=== PATIENT | male | born 1960 | race Caucasian/White ===

== ENCOUNTER 2017-12-24 21:47 | Emergency (ER) | payer MEDICAID ==
[~2017-12-24] VITALS: Ht 172.7 cm; Wt 82.7 kg
[2017-12-25] MEDS ORDERED: HYDROcodone/acetaminophen 10/325mg tab PO ONE (01:05)
[2017-12-25 01:12] LABS: BASOPHILS # (AUTO) 0.1 X10'3 (0-0.2); EOSINOPHILS # (AUTO) 0.1 X10'3 (0-0.9); EOSINOPHILS % (AUTO) 1.8 % (0-6); HEMATOCRIT 40.5 % (42.0-52.0); HEMOGLOBIN 13.9 g/dl (14.0-17.9); LYMPHOCYTES # (AUTO) 2.4 X10'3 (1.1-4.8); LYMPHOCYTES % (AUTO) 29.6 % (21-51); MEAN CORPUSCULAR HGB CONC 34.4 % (33.0-36.5); MEAN CORPUSCULAR VOLUME 92.9 FL (78-98); MEAN PLATELET VOLUME 8.2 FL (7.4-10.4); MONOCYTES # (AUTO) 1.1 X10'3 (0-0.9); MONOCYTES % (AUTO) 13.1 % (2-12); NEUTROPHILS # (AUTO) 4.4 X10'3 (1.8-7.7); NEUTROPHILS % (AUTO) 54.5 % (42-75); PLATELET COUNT 193 X10'3 (140-440); RED BLOOD COUNT 4.36 X10'6 (4.70-6.10); WHITE BLOOD COUNT 8.1 X10'3 (4.5-11.0)
[2017-12-25] MEDS ORDERED: clindamycin-Cleocin 900mg/D5W 50 ML IV ONE (01:15)
[2017-12-25 01:20] LABS: ALANINE AMINOTRANSFERASE 82 U/L (12-78); ALBUMIN 3.2 G/DL (3.4-5.0); ALBUMIN/GLOBULIN RATIO 0.8 (1.1-1.5); ALKALINE PHOSPHATASE 106 IU/L (46-116); ANION GAP 7 (8-16); ASPARTATE AMINO TRANSFERASE 68 U/L (10-37); BILIRUBIN,TOTAL 0.4 MG/DL (0.1-1.0); BLOOD UREA NITROGEN 10 MG/DL (7-18); CALCIUM 8.1 MG/DL (8.5-10.1); CHLORIDE 103 MMOL/L (99-107); CREATININE 0.83 MG/DL (0.60-1.10); GLUCOSE 100 MG/DL (70-104); SODIUM 135 MMOL/L (135-145); TOTAL CARBON DIOXIDE 24.8 MMOL/L (24-32); TOTAL PROTEIN 7.1 G/DL (6.4-8.2); eGFR > 90 ML/MIN
[2017-12-25] MEDS ORDERED: SULF1TAB49 PO (02:01)
[2017-12-25] MEDS ORDERED: HYDR-569 PO (02:01)
[2017-12-25] MEDS ORDERED: CEPH500C5 PO (02:01)
[2017-12-25 02:19] VITALS: BP 111/70
== END 2017-12-25 02:22 | disposition home or self-care (01) ==
LOC: ER 21:48
DX: L03.116 Cellulitis of left lower limb (principal); I10 Essential (primary) hypertension; F17.200 Nicotine dependence, unspecified, uncomplicated; Z98.890 Other specified postprocedural states; Z88.5 Allergy status to narcotic agent; Z88.8 Allergy status to other drugs, medicaments and biological substances
CPT/HCPCS: 36415; 73630; 80053; 85025; 96365; 99285; J3490

== ENCOUNTER 2020-12-29 09:02 | Inpatient (IN) | payer MEDICAID ==
[~2020-12-29] VITALS: Ht 172.7 cm; Wt 85.2 kg
[~2020-12-29 09:02] MED LIST: HYDR-4383 PO
[2020-12-29 09:53] LABS: BASOPHILS % (AUTO) 0.3 % (0-1); EOSINOPHILS # (AUTO) 0.3 X10'3 (0-0.9); EOSINOPHILS % (AUTO) 3.6 % (0-6); HEMOGLOBIN 15.4 g/dl (14.0-17.9); LYMPHOCYTES # (AUTO) 2.6 X10'3 (1.1-4.8); LYMPHOCYTES % (AUTO) 30.2 % (21-51); MEAN CORPUSCULAR HGB CONC 33.4 g/dL (33.0-36.5); MEAN CORPUSCULAR VOLUME 89.6 FL (78-98); MEAN PLATELET VOLUME 6.7 FL (7.4-10.4); MONOCYTES # (AUTO) 0.8 X10'3 (0-0.9); MONOCYTES % (AUTO) 9.3 % (2-12); NEUTROPHILS # (AUTO) 4.9 X10'3 (1.8-7.7); NEUTROPHILS % (AUTO) 56.6 % (42-75); PLATELET COUNT 392 X10'3 (140-440); RED BLOOD COUNT 5.13 X10'6 (4.70-6.10); RED CELL DISTRIBUTION WIDTH 12.9 % (11.5-14.5); WHITE BLOOD COUNT 8.7 X10'3 (4.5-11.0)
[2020-12-29 10:08] LABS: ALANINE AMINOTRANSFERASE 21 U/L (12-78); ALBUMIN 3.8 G/DL (3.4-5.0); ALBUMIN/GLOBULIN RATIO 0.9 (1.1-1.5); ALKALINE PHOSPHATASE 103 IU/L (46-116); ANION GAP 9 (8-16); ASPARTATE AMINO TRANSFERASE 20 U/L (10-37); BILIRUBIN,TOTAL 0.2 MG/DL (0.1-1.0); BLOOD UREA NITROGEN 17 MG/DL (7-18); BUN/CREATININE RATIO 18.7 (5.4-32.0); CALCIUM 9.2 MG/DL (8.5-10.1); CHLORIDE 104 MMOL/L (99-107); CREATININE 0.91 MG/DL (0.60-1.10); GLUCOSE 107 MG/DL (70-104); POTASSIUM 4.7 MMOL/L (3.5-5.1); SODIUM 139 MMOL/L (135-145); TOTAL CARBON DIOXIDE 26.3 MMOL/L (24-32); TOTAL PROTEIN 7.9 G/DL (6.4-8.2); eGFR 85 ML/MIN
[2020-12-29] MEDS ORDERED: aspirin 81mg tab.chew PO ONE (10:15)
--- NOTE | 2020-12-29 10:15 | NUR ---
Patient actively vomiting, Dr Brandt aware.
[2020-12-29] MEDS ORDERED: nitroGLYCERIN 0.4mg/hour patch TD ONE (10:25)
[2020-12-29] MEDS ORDERED: amLODIPine 5mg tablet PO ONE (10:30)
[2020-12-29] MEDS ORDERED: chlordiazePOXIDE 25mg capsule PO ONE ×2 (10:30→13:20)
[2020-12-29] MEDS ORDERED: ondansetron 4mg rapidly disintigrating tab PO ONE (10:40)
[2020-12-29] MEDS ORDERED: hydrALAZINE 25 MG tablet PO SCH (12:05)
[2020-12-29] MEDS ORDERED: hydrALAZINE 25 MG tablet PO ONE (12:05)
[2020-12-29] MEDS ORDERED: carvedilol 6.25mg tablet PO SCH (12:05)
[2020-12-29] MEDS ORDERED: carvedilol 6.25mg tablet PO ONE (12:05)
[2020-12-29] MEDS ORDERED: AMLO10TA48 PO (12:08)
[2020-12-29] MEDS ORDERED: CARV-49 PO (12:08)
--- NOTE | 2020-12-29 13:06 | NUR ---
Dr Brandt aware patient BP 225/137.
[2020-12-29] MEDS ORDERED: nitroGLYCERIN-Tridil 50MG/D5W 250 ML IV PRN (13:20)
[2020-12-29 13:39] LABS: PARTIAL THROMBOPLASTIN TIME 28 SECONDS (22-32)
[2020-12-29] MEDS ORDERED: LURA40TA3 PO (13:43)
[2020-12-29] MEDS ORDERED: FLO0.4C PO (13:43)
[2020-12-29] MEDS ORDERED: BUPR-94 PO (13:43)
[2020-12-29] MEDS ORDERED: BENZ1TAB7 PO (13:43)
[2020-12-29] MEDS ORDERED: ATOM80CA PO (13:43)
[2020-12-29 13:53] LABS: ETHANOL < 0.010 GM/DL (0.0-0.010)
[2020-12-29] MEDS ORDERED: hydrALAZINE 20mg/ml inj. IV PRN (15:00)
[2020-12-29] MEDS ORDERED: dextrose 50%-water 50ml dispensing syringe IV PRN (15:20)
[2020-12-29] MEDS ORDERED: mag hydrox/Alum hydrox/simeth 30ml oral suspension PO PRN (15:20)
[2020-12-29] MEDS ORDERED: ondansetron/PF 4mg/2ml inj IV PRN (15:20)
[2020-12-29] MEDS ORDERED: thiamine 100mg/ml 2ml inj. IV ONE (15:20)
[2020-12-29] MEDS ORDERED: aminophylline 250mg/10ml inj. IV PRN (15:20)
[2020-12-29] MEDS ORDERED: magnesium 2GM in 50ml NS 50 ML IV PRN (15:20)
[2020-12-29] MEDS ORDERED: diphenhydrAMINE 25mg capsule PO PRN (15:20)
[2020-12-29] MEDS ORDERED: bisacodyl 10mg suppository rectal RC PRN (15:20)
[2020-12-29] MEDS ORDERED: magnesium Cl slow-release 64mg tablet PO PRN (15:20)
[2020-12-29] MEDS ORDERED: haloperidol lactate 5mg/ml inj IM PRN (15:20)
[2020-12-29] MEDS ORDERED: LORazepam 2 mg/ml vial IV PRN (15:20)
[2020-12-29] MEDS ORDERED: metoprolol tartrate 1mg/ml inj IV PRN (15:20)
[2020-12-29] MEDS ORDERED: magnesium hydroxide 30ml (MOM) UD suspension PO PRN (15:20)
[2020-12-29] MEDS ORDERED: haloperidol 5mg tablet PO PRN (15:20)
[2020-12-29] MEDS ORDERED: magnesium 4gm in 100ml NS 100 ML IV PRN (15:20)
[2020-12-29] MEDS ORDERED: potassium Cl 20 mEq SR tablet PO PRN ×2 (15:20)
[2020-12-29] MEDS ORDERED: nitroGLYCERIN 0.4mg SUBLingual tab SL PRN (15:20)
[2020-12-29] MEDS ORDERED: regadenoson 0.4mg/5ml syringe IV ONE (15:20)
[2020-12-29] MEDS ORDERED: potassium Cl 40MEQ/1/2NS 520ml 520 ML IV PRN ×2 (15:20)
[2020-12-29] MEDS ORDERED: acetaminophen 650mg rectal suppository RC PRN (15:20)
[2020-12-29] MEDS ORDERED: acetaminophen 325mg tablet PO PRN ×2 (15:20)
[2020-12-29] MEDS: lisinopril 20mg tablet PO SCH (15:28)
[2020-12-29] MEDS ORDERED: HYDROcodone/acetaminophen 10/325mg tab PO PRN (15:30)
[2020-12-29] MEDS ORDERED: HYDROcodone/acetaminophen 5mg/325mg tablet PO PRN (15:30)
[2020-12-29 15:53] LABS: HEMOGLOBIN A1C 5.5 % (4.5-6.2)
[2020-12-29] MEDS: dextrose 5%-normal saline 1,000 ML IV SCH (15:54)
[2020-12-29 18:32] LABS: URINE AMPHETAMINE SCREEN POSITIVE (Neg); URINE BARBITUATE SCREEN NEGATIVE (Neg); URINE BENZODIAZEPINES SCREEN NEGATIVE (Neg); URINE CANNABINOID SCREEN POSITIVE (Neg); URINE COCAINE SCREEN NEGATIVE (Neg); URINE METHADONE SCREEN NEGATIVE (Neg); URINE OPIATE SCREEN NEGATIVE (Neg); URINE PHENCYCLIDINE SCREEN NEGATIVE (Neg)
[2020-12-29 18:35] LABS: CLARITY,URINE CLEAR (Clear); COLOR,URINE YELLOW (Yellow); GLUCOSE, URINE NEGATIVE (Neg); KETONES,URINE NEGATIVE (Neg); LEUKOCYTE ESTERASE ,URINE NEGATIVE (Neg); NITRITES, URINE NEGATIVE (Neg); OCCULT BLOOD,URINE NEGATIVE (Neg); PH,URINE 6.5 (4.8-8.0); PROTEIN,URINE NEGATIVE (Neg); UROBILINOGEN,URINE 0.2 E.U/dL (0.2-1.0)
[2020-12-29 18:36] LABS: UA COLLECTION TYPE VOIDED
[2020-12-29] MEDS: K and/or MAG REPLACEMENT MC SCH (20:00)
[2020-12-29] MEDS: lurasidone 20mg tablet PO SCH (20:27)
[2020-12-29] MEDS: carVEDilol 12.5mg tablet PO SCH (20:27)
[2020-12-29] MEDS: heparin, porcine 5000 units/ml vial SQ SCH (20:29)
[2020-12-30] VITALS (10 sets, daily range): BP systolic 137–161; BP diastolic 49–88
[2020-12-30] MEDS: dextrose 5%-normal saline 1,000 ML IV SCH ×2 (01:53→11:20)
--- NOTE | 2020-12-30 03:11 | NUR ---
Consulted w/ hospitalist DR. Menendez about continuation of Nitro drip. Pt vitals WNL, no new chest pain reported. MD ordered to DC Nitro drip and monitor. Nitro DC'd as ordered and pt continued to be closely monitored.
[2020-12-30 04:14] LABS: BASOPHILS # (AUTO) 0.1 X10'3 (0-0.2); BASOPHILS % (AUTO) 0.5 % (0-1); EOSINOPHILS # (AUTO) 0.1 X10'3 (0-0.9); EOSINOPHILS % (AUTO) 0.9 % (0-6); HEMATOCRIT 40.9 % (42.0-52.0); HEMOGLOBIN 13.6 g/dl (14.0-17.9); LYMPHOCYTES # (AUTO) 2.1 X10'3 (1.1-4.8); LYMPHOCYTES % (AUTO) 13.4 % (21-51); MEAN CORPUSCULAR HEMOGLOBIN 29.8 PG (27.0-31.0); MEAN CORPUSCULAR HGB CONC 33.3 g/dL (33.0-36.5); MEAN CORPUSCULAR VOLUME 89.6 FL (78-98); MONOCYTES % (AUTO) 6.4 % (2-12); NEUTROPHILS # (AUTO) 12.5 X10'3 (1.8-7.7); NEUTROPHILS % (AUTO) 78.8 % (42-75); PLATELET COUNT 288 X10'3 (140-440); RED BLOOD COUNT 4.56 X10'6 (4.70-6.10); WHITE BLOOD COUNT 15.8 X10'3 (4.5-11.0)
[2020-12-30 04:42] LABS: ALANINE AMINOTRANSFERASE 11 U/L (12-78); ALBUMIN 3.1 G/DL (3.4-5.0); ALBUMIN/GLOBULIN RATIO 0.8 (1.1-1.5); ALKALINE PHOSPHATASE 68 IU/L (46-116); AMYLASE 39 U/L (25-115); ANION GAP 10 (8-16); ASPARTATE AMINO TRANSFERASE 14 U/L (10-37); BILIRUBIN,TOTAL 0.4 MG/DL (0.1-1.0); BLOOD UREA NITROGEN 10 MG/DL (7-18); BUN/CREATININE RATIO 12.5 (5.4-32.0); CALCIUM 8.4 MG/DL (8.5-10.1); CHLORIDE 105 MMOL/L (99-107); CHOL/HDL RATIO 5.3 (0.00-4.99); CHOLESTEROL 218 MG/DL (0-200); GLUCOSE 138 MG/DL (70-104); HDL CHOLESTEROL 41 MG/DL (35-60); LDL CHOLESTEROL 145 MG/DL (50-100); MAGNESIUM 1.9 MG/DL (1.5-2.4); PHOSPHORUS 2.6 MG/DL (2.3-4.5); POTASSIUM 3.9 MMOL/L (3.5-5.1); SODIUM 137 MMOL/L (135-145); TOTAL CARBON DIOXIDE 22.5 MMOL/L (24-32); TOTAL PROTEIN 6.8 G/DL (6.4-8.2); TRIGLYCERIDES 220 MG/DL (20-135); eGFR > 90 ML/MIN
--- NOTE | 2020-12-30 06:48 | NUR ---
pt asleep.we will monitor.on a hospital bed.
[2020-12-30] MEDS: lurasidone 20mg tablet PO SCH (07:30)
[2020-12-30] MEDS ORDERED: benztropine 1mg tablet PO SCH (08:00)
[2020-12-30] MEDS ORDERED: multivitamins, therapeutics tablet PO SCH (08:00)
[2020-12-30] MEDS ORDERED: thiamine 100mg tablet PO SCH (08:00)
[2020-12-30] MEDS: K and/or MAG REPLACEMENT MC SCH (08:00)
[2020-12-30] MEDS ORDERED: atomoxetine 40 MG capsule PO SCH (08:00)
[2020-12-30] MEDS: carVEDilol 12.5mg tablet PO SCH (08:00)
[2020-12-30] MEDS: lisinopril 20mg tablet PO SCH (08:00)
[2020-12-30] MEDS ORDERED: tamsulosin 0.4mg capsule PO SCH (08:00)
[2020-12-30] MEDS ORDERED: amLODIPine 5mg tablet PO SCH (08:00)
[2020-12-30] MEDS: heparin, porcine 5000 units/ml vial SQ SCH (08:00)
[2020-12-30] MEDS ORDERED: folic acid 1mg tablet PO SCH (08:00)
[2020-12-30] MEDS ORDERED: buPROPion SR 150mg tablet PO SCH (08:00)
--- NOTE | 2020-12-30 09:53 | NUR ---
pt on unit and oriented to unit. tele applied. pt currently npo for ander scan. morning meds will be given after. updated pt on plan. safety measures intact. call light within reach.
[2020-12-30] MEDS ORDERED: morphine 2 MG/ML inj. syringe IV PRN (12:05)
[2020-12-30] MEDS ORDERED: iohexol 350MG/ML 100ml bottle IV ONE (12:29)
[2020-12-30] MEDS ORDERED: CARV-50 PO (13:33)
[2020-12-30] MEDS ORDERED: MULT-25 PO (13:33)
[2020-12-30] MEDS ORDERED: LISI20TA28 PO (13:33)
[2020-12-30] MEDS ORDERED: THIA50TA10 PO (13:33)
[2020-12-30] MEDS ORDERED: FOLI0.4T6 PO (13:33)
--- NOTE | 2020-12-30 14:00 | NUR ---
discharge teaching done. all questions answered. copy of signed copy in chart. iv discontinued. tele discontinued. all belongings with pt. pt walked down to lobby with pct to private vehicle.
[2020-12-31] MEDS ORDERED: LORazepam 1 MG tablet PO PRN (15:20)
[2020-12-31] MEDS ORDERED: LORazepam 2 mg/ml vial IV PRN (15:20)
[2021-01-02] MEDS ORDERED: LORazepam 2 mg/ml vial IV PRN (15:20)
[2021-01-02] MEDS ORDERED: LORazepam 1 MG tablet PO PRN (15:20)
== END 2020-12-30 13:56 | disposition home or self-care (01) | DRG 243 ==
LOC: ER 09:03 → ED HOLD 15:18 → PCU 3S 12-30 07:38
PROVIDERS: ADMIT Family Medicine; ATTEND Family Medicine
DX: K21.9 Gastro-esophageal reflux disease without esophagitis (principal); F15.20 Other stimulant dependence, uncomplicated; F25.0 Schizoaffective disorder, bipolar type; F12.10 Cannabis abuse, uncomplicated; I10 Essential (primary) hypertension; I16.1 Hypertensive emergency; F17.200 Nicotine dependence, unspecified, uncomplicated; G89.4 Chronic pain syndrome; N40.0 Benign prostatic hyperplasia without lower urinary tract symptoms; Z82.0 Family history of epilepsy and other diseases of the nervous system; Z82.5 Family history of asthma and other chronic lower respiratory diseases; Z91.14 Patient's other noncompliance with medication regimen
CPT/HCPCS: 36415; 71045; 71275; 78452; 80053; 80061; 80305; 80320; 81003; 82150; 83036; 83735; 83880; 84100; 84443; 84484; 85025; 85610; 85730; 87081; 93005; 93017; 93306; 96374; 99283; A9500; G0378; J1644; J3411; J3490; J7042; Q9967

== ENCOUNTER 2021-10-28 13:15 | Emergency (ER) | payer MEDICAID ==
[~2021-10-28] VITALS: Ht 172.7 cm; Wt 89.1 kg
[~2021-10-28 13:15] MED LIST changes: +AMLO10TA48 PO; +ATOM80CA PO; +BENZ1TAB7 PO; +BUPR-94 PO; +CARV-50 PO; +FLO0.4C PO; +LISI20TA28 PO; +LURA40TA2 PO; +MULT-25 PO; +THIA50TA10 PO
[2021-10-28 13:27] VITALS: BP 228/125
== END 2021-10-29 01:50 | disposition left against medical advice (07) ==
LOC: ER 13:15
DX: M54.2 Cervicalgia (principal); Z53.21 Procedure and treatment not carried out due to patient leaving prior to being seen by health care provider
CPT/HCPCS: 72125